=== PATIENT | female | born 1955 | race Caucasian/White ===

== ENCOUNTER → 2017-09-26 | Outpatient (CLI) | payer OTHER ==
[~2017-09-26] MED LIST: GABA300; OXYC15ER; Prednisone10 M1; TEMA30; TRAM50
== END | disposition home or self-care (01) ==
LOC: PLD 13:15 → LAB SHORT 13:15
DX: D48.5 Neoplasm of uncertain behavior of skin (principal)
CPT/HCPCS: 88305

== ENCOUNTER → 2020-04-13 | Outpatient (CLI) | payer OTHER | END | disposition home or self-care (01) | LOC: PLD 07:54 → LAB SHORT 07:54 | DX: D48.5 Neoplasm of uncertain behavior of skin (principal) | CPT/HCPCS: 88305 ==

== ENCOUNTER 2020-11-10 08:14 | Day surgery (SDC) | payer OTHER ==
[~2020-11-10] VITALS: Ht 165.1 cm; Wt 59.7 kg
== END 2020-11-10 10:10 | disposition home or self-care (01) ==
LOC: ORSCSDS 08:14
PROVIDERS: Surgery
PROC: 0DJD8ZZ Inspection of Lower Intestinal Tract, Via Natural or Artificial Opening Endoscopic (ICD-10-PCS; principal; 2020-11-10 09:30)
DX: Z12.11 Encounter for screening for malignant neoplasm of colon (principal); Z86.010 Personal history of colon polyps; Z87.891 Personal history of nicotine dependence; Z79.899 Other long term (current) drug therapy
CPT/HCPCS: J2704; J7120

== ENCOUNTER 2022-04-13 12:22 | Inpatient (IN) | payer MEDICARE ==
[~2022-04-13] VITALS: Ht 165.1 cm; Wt 54.5 kg
--- NOTE | 2022-04-13 13:30 | NUR ---
PATIENT TO UNIT VIA W/C. ORIENTED TO ROOM & CALL LIGHT. VSS ON ROOM AIR. LUNGS CLEAR. PATIENT REPORTS MINIMAL PAIN TO HIP AT THIS TIME, TRASNFERRED TO BED 1P ASSIST.
--- NOTE | 2022-04-13 14:05 | NUR ---
PATIENT TO DAY SURGERY VIA BED WITH [facility]ETH RN'S.
[2022-04-13 14:28] LABS: BASOPHILS ABSOLUTE AUTO 0.04 K/mm3 (0.00-0.23); BASOPHILS PERCENT AUTO 1 % (0-2); EOSINOPHILS ABSOLUTE AUTO 0.04 K/mm3 (0.00-0.68); EOSINOPHILS PERCENT AUTO 1 % (0-6); Hematocrit 34.8 % (33.0-51.0); Hemoglobin 12.6 g/dL (11.5-16.0); IMMATURE GRAN ABSOLUTE AUTO 0.01 K/mm3 (0.00-0.10); IMMATURE GRAN PERCENT AUTO 0 % (0-1); LYMPHOCYTES ABSOLUTE AUTO 1.08 K/mm3 (0.84-5.20); LYMPHOCYTES PERCENT AUTO 24 % (21-46); MONOCYTES ABSOLUTE AUTO 0.54 K/mm3 (0.16-1.47); MONOCYTES PERCENT AUTO 12 % (4-13); Mean Corpuscular HGB 33.8 pg (26.0-34.0); Mean Corpuscular HGB Conc 36.2 g/dL (31.5-36.5); Mean Corpuscular Volume 93 fL (80-100); NEUTROPHILS ABSOLUTE AUTO 2.79 K/mm3 (1.96-9.15); NEUTROPHILS PERCENT AUTO 62 % (41-73); Platelet Count 147 K/mm3 (150-400); RDW Coefficient Variation 12.6 % (11.7-14.2); RDW Standard Deviation 43.5 fL (35.1-46.3); Red Blood Cell Count 3.73 M/mm3 (3.80-5.20)
[2022-04-13] MEDS ORDERED: OXYC5 PO (14:34)
[2022-04-13] MEDS ORDERED: IBUP400 PO (14:35)
[2022-04-13 14:42] LABS: International Normalized Ratio 1.07; Prothrombin Time Results 11.2 Sec (9.7-11.5)
--- NOTE | 2022-04-13 14:42 | NUR ---
Patient confirms NPO status and agrees with scheduled surgery. Pre-Op teaching done. Pt verbalizes understanding. Surgical site prepped with 2% Chlorhexidine cloth wipe. Lungs clear T/O to Auscultation.
[2022-04-13 14:45] LABS: Albumin, Blood 3.7 g/dL (3.4-5.0); Albumin/Globulin Ratio 0.9 (0.8-1.8); Bilirubin, Direct 0.6 mg/dL (0.0-0.3); Bilirubin, Indirect 0.8 mg/dL (0.1-0.7); Bilirubin, Total 1.4 mg/dL (0.1-1.0); Bun/Creatinine Ratio 19.3 (12.0-20.0); Calcium, Blood 8.9 mg/dL (8.5-10.1); Creatinine, Blood 0.36 mg/dL (0.40-1.00); Globulin, Blood 3.9 g/dL (2.2-4.0); Potassium, Blood 3.7 mmol/L (3.5-5.5); Total Protein, Blood 7.6 g/dL (6.4-8.2)
--- NOTE | 2022-04-13 17:15 | NUR ---
PATIENT RETURNED TO ROOM FROM PACU. VSS ON RA, LUNGS CLEAR. X1 BULKY DRESSING TO LEFT HIP. PATIENT REPORTS MINIMAL PAIN. ORIENTED TO ROOM & UNIT, CALL LIGHT IN REACH.
--- NOTE | 2022-04-13 18:05 | NUR ---
NO ACUTE CHANGES SINCE RETURN TO UNIT FROM SURGERY. POD 0 LEFT HIP PINNING. X1 BULKY DRESSING IN PLACE, C/D/I. MINIMAL PAIN, MEDICATED W/ TRAMADOL PER EMAR. 1P ASSIST TO BSC, STAND/PIVOT. WBAT. EATING, DRINKING, & VOIDING WELL. CALL LIGHT IN REACH, WILL REPORT TO ONCOMING RN.
[2022-04-14 04:54] LABS: BASOPHILS PERCENT AUTO 0 % (0-2); EOSINOPHILS PERCENT AUTO 0 % (0-6); Hematocrit 34.8 % (33.0-51.0); Hemoglobin 12.5 g/dL (11.5-16.0); IMMATURE GRAN ABSOLUTE AUTO 0.01 K/mm3 (0.00-0.10); IMMATURE GRAN PERCENT AUTO 0 % (0-1); LYMPHOCYTES ABSOLUTE AUTO 0.37 K/mm3 (0.84-5.20); LYMPHOCYTES PERCENT AUTO 10 % (21-46); MONOCYTES PERCENT AUTO 3 % (4-13); Mean Corpuscular HGB 33.7 pg (26.0-34.0); Mean Corpuscular HGB Conc 35.9 g/dL (31.5-36.5); Mean Corpuscular Volume 94 fL (80-100); Mean Platelet Volume 10.3 fL (9.1-12.4); NEUTROPHILS ABSOLUTE AUTO 3.28 K/mm3 (1.96-9.15); NEUTROPHILS PERCENT AUTO 87 % (41-73); Platelet Count 160 K/mm3 (150-400); RDW Coefficient Variation 12.4 % (11.7-14.2); RDW Standard Deviation 43.3 fL (35.1-46.3); Red Blood Cell Count 3.71 M/mm3 (3.80-5.20); White Blood Cell Count 3.76 K/mm3 (4.00-11.30)
[2022-04-14 05:18] LABS: Albumin, Blood 3.4 g/dL (3.4-5.0); Albumin/Globulin Ratio 0.9 (0.8-1.8); Bilirubin, Total 1.3 mg/dL (0.1-1.0); Bun/Creatinine Ratio 21.4 (12.0-20.0); Calcium, Blood 8.6 mg/dL (8.5-10.1); Creatinine, Blood 0.42 mg/dL (0.40-1.00); Globulin, Blood 3.9 g/dL (2.2-4.0); Potassium, Blood 3.8 mmol/L (3.5-5.5); Total Protein, Blood 7.3 g/dL (6.4-8.2)
--- NOTE | 2022-04-14 05:19 | NUR ---
GETTERER SUMMARY POD 0 FOR L HIP PINNING WITH DR FRAZIER. PT HAS BEEN ABLE TO AMBULATE WITH FWW AND ASSIST MULTIPLE TIMES TONIGHT. PAIN MANAGED WITH TRAMADOL AND IV FENTANYL FOR BREAKTHROUGH PAIN. PT HOPEFUL TO BE DISCHARGED LATER TODAY. VSS, WILL CONTINUE TO MONITOR.
[2022-04-14] MEDS ORDERED: SENN187 PO (10:46)
[2022-04-14] MEDS ORDERED: ACET500 PO (10:47)
--- NOTE | 2022-04-14 12:07 | NUR ---
1145 discharged to home with her . pt ambulating with standby assist and use of walker, steady on feet. shawna po food and fluids, reports pain is adequately controlled. patient and her husbands verbalize understanding of discharge instructions and are in agreement to discharge home with home health follow up. pt states she cannot take tylenol as prescribed at discharge but has advil and prescription pain meds at home. pt and in agreement with plans to discharge
== END 2022-04-14 11:45 | disposition home health service (06) | DRG 481 ==
LOC: SURS 12:22
PROVIDERS: Family Medicine; Orthopaedic Surgery; ADMIT Internal Medicine
PROC: 0QS734Z Reposition Left Upper Femur with Internal Fixation Device, Percutaneous Approach (ICD-10-PCS; principal; 2022-04-13 14:15)
DX: S72.012A Unspecified intracapsular fracture of left femur, initial encounter for closed fracture (principal); E87.1 Hypo-osmolality and hyponatremia; K70.30 Alcoholic cirrhosis of liver without ascites; Z28.21 Immunization not carried out because of patient refusal; D69.59 Other secondary thrombocytopenia; E78.5 Hyperlipidemia, unspecified; G47.00 Insomnia, unspecified; R79.89 Other specified abnormal findings of blood chemistry; Z85.810 Personal history of malignant neoplasm of tongue; Z98.890 Other specified postprocedural states; Z88.8 Allergy status to other drugs, medicaments and biological substances; Z98.891 History of uterine scar from previous surgery; Z79.899 Other long term (current) drug therapy; W10.8XXA Fall (on) (from) other stairs and steps, initial encounter
CPT/HCPCS: 36415; 80048; 80053; 80076; 85025; 85610; 85730; 93005; 93010; 97110; 97161; 97165; 97535; A9270; J0171; J0690; J1100; J2250; J2405; J2704; J3010; J7120

== ENCOUNTER 2023-05-25 14:28 | Emergency (ER) | payer MEDICARE ==
[~2023-05-25] VITALS: Ht 165.1 cm; Wt 52.2 kg
[~2023-05-25 14:28] MED LIST changes: +ACET500 PO; +IBUP400 PO; +OXYC5 PO; +SENN187 PO
[2023-05-25 14:41] VITALS: BP 131/81
[2023-05-25 15:28] LABS: International Normalized Ratio 1.28; Prothrombin Time Results 13.3 Sec (9.7-11.5)
== END 2023-05-25 15:46 | disposition home or self-care (01) ==
LOC: ER 14:28
PROVIDERS: Physician Assistant
DX: R18.8 Other ascites (principal); Z87.19 Personal history of other diseases of the digestive system; Z87.891 Personal history of nicotine dependence; Z79.899 Other long term (current) drug therapy; Z88.6 Allergy status to analgesic agent
CPT/HCPCS: 85610; 85730; 99284

== ENCOUNTER 2023-05-26 10:49 | Day surgery (SDC) | payer MEDICARE | END 2023-05-26 23:00 | disposition home or self-care (01) | LOC: US 10:49 | DX: R18.8 Other ascites (principal) | CPT/HCPCS: 49083 ==

== ENCOUNTER 2023-06-06 07:42 | Emergency (ER) | payer MEDICARE ==
[~2023-06-06] VITALS: Ht 165.1 cm; Wt 50.8 kg
[2023-06-06 11:21] VITALS: BP 125/60
== END 2023-06-06 11:26 | disposition home or self-care (01) ==
LOC: ER 07:42
DX: R18.8 Other ascites (principal); K74.60 Unspecified cirrhosis of liver; Z88.6 Allergy status to analgesic agent; Z79.899 Other long term (current) drug therapy; Z87.891 Personal history of nicotine dependence
CPT/HCPCS: 49083; 93005; 93010; 99284-25

== ENCOUNTER 2023-07-04 11:08 | Emergency (ER) | payer MEDICARE ==
[~2023-07-04] VITALS: Ht 165.1 cm; Wt 52.2 kg
[2023-07-04 13:02] LABS: BASOPHILS ABSOLUTE AUTO 0.01 K/mm3 (0.00-0.23); BASOPHILS PERCENT AUTO 0 % (0-2); EOSINOPHILS ABSOLUTE AUTO 0.07 K/mm3 (0.00-0.68); EOSINOPHILS PERCENT AUTO 1 % (0-6); Hemoglobin 10.2 g/dL (11.5-16.0); IMMATURE GRAN ABSOLUTE AUTO 0.04 K/mm3 (0.00-0.10); IMMATURE GRAN PERCENT AUTO 0 % (0-1); LYMPHOCYTES ABSOLUTE AUTO 1.19 K/mm3 (0.84-5.20); LYMPHOCYTES PERCENT AUTO 12 % (21-46); MONOCYTES ABSOLUTE AUTO 0.98 K/mm3 (0.16-1.47); MONOCYTES PERCENT AUTO 10 % (4-13); Mean Corpuscular HGB 32.5 pg (26.0-34.0); Mean Corpuscular Volume 96 fL (80-100); Mean Platelet Volume 8.8 fL (9.1-12.4); NEUTROPHILS ABSOLUTE AUTO 7.41 K/mm3 (1.96-9.15); NEUTROPHILS PERCENT AUTO 76 % (41-73); Platelet Count 315 K/mm3 (150-400); RDW Coefficient Variation 17.5 % (11.7-14.2); Red Blood Cell Count 3.14 M/mm3 (3.80-5.20)
[2023-07-04 13:18] LABS: International Normalized Ratio 1.44; Prothrombin Time Results 14.8 Sec (9.7-11.5)
[2023-07-04 13:24] LABS: Albumin, Blood 2.5 g/dL (3.4-5.0); Albumin/Globulin Ratio 0.7 (0.8-1.8); Bilirubin, Total 3.1 mg/dL (0.1-1.0); Bun/Creatinine Ratio 28.1 (12.0-20.0); Calcium, Blood 8.9 mg/dL (8.5-10.1); Creatinine, Blood 0.71 mg/dL (0.40-1.00); Globulin, Blood 3.6 g/dL (2.2-4.0); Potassium, Blood 3.5 mmol/L (3.5-5.5); Total Protein, Blood 6.1 g/dL (6.4-8.2)
[2023-07-04 15:25] LABS: Calcium, Ionized (POC) 1.11 mmol/L (1.10-1.46); Chloride (POC) 99 mmol/L (98-108); Creatinine (POC) 0.6 mg/dL (0.6-1.0); Glucose (ISTAT POC) 107 mg/dL (70-99); Hemoglobin (POC) 10.9 g/dL (12.0-16.0); Potassium (POC) 3.5 mmol/L (3.5-5.5); Sodium (POC) 130 mmol/L (135-148); Total CO2 (POC) 21 mmol/L (21-32)
[2023-07-04] MEDS ORDERED: XARELTO20 M1 PO (15:40)
[2023-07-04] MEDS ORDERED: SPIRONOLACTONE50 MG PO (15:40)
[2023-07-04 15:46] VITALS: BP 132/68
== END 2023-07-04 15:46 | disposition home or self-care (01) ==
LOC: ER 11:08
PROVIDERS: Physician Assistant
DX: K76.9 Liver disease, unspecified (principal); Z88.6 Allergy status to analgesic agent; Z79.899 Other long term (current) drug therapy; Z87.891 Personal history of nicotine dependence; Z86.718 Personal history of other venous thrombosis and embolism
CPT/HCPCS: 49083; 71046; 80047; 80053; 82140; 85014; 85025; 85610; 85730; 93005; 93010; 93970; 99285-25

== ENCOUNTER 2023-12-06 14:46 | Day surgery (SDC) | payer MEDICARE ==
[~2023-12-06 14:46] MED LIST changes: +SPIRONOLACTONE50 MG PO; +XARELTO20 M1 PO
== END 2023-12-08 22:52 | disposition home or self-care (01) ==
LOC: US 14:46
DX: K70.31 Alcoholic cirrhosis of liver with ascites (principal)
CPT/HCPCS: 49083

== ENCOUNTER 2023-12-19 08:31 | Day surgery (SDC) | payer MEDICARE | END 2023-12-19 23:17 | disposition home or self-care (01) | LOC: US 08:31 | DX: K70.31 Alcoholic cirrhosis of liver with ascites (principal) | CPT/HCPCS: 49083 ==

== ENCOUNTER 2024-01-17 08:31 | Day surgery (SDC) | payer MEDICARE | END 2024-01-17 23:17 | disposition home or self-care (01) | LOC: US 08:31 | DX: K70.31 Alcoholic cirrhosis of liver with ascites (principal) | CPT/HCPCS: 49083 ==

== ENCOUNTER 2024-02-01 08:59 | Day surgery (SDC) | payer MEDICARE | END 2024-02-01 23:51 | disposition home or self-care (01) | LOC: US 08:59 | DX: K70.11 Alcoholic hepatitis with ascites (principal); K70.31 Alcoholic cirrhosis of liver with ascites; E78.5 Hyperlipidemia, unspecified; Z87.891 Personal history of nicotine dependence; Z88.6 Allergy status to analgesic agent; Z88.1 Allergy status to other antibiotic agents; Z79.899 Other long term (current) drug therapy | CPT/HCPCS: 36415; 49083; 80053; 85610 ==